=== PATIENT | male | born 1965 | race African-American/Black ===

== ENCOUNTER 2018-05-11 01:24 | Emergency (ER) | payer MEDICAID ==
[~2018-05-11] VITALS: Ht 188 cm; Wt 75.0 kg
[2018-05-11 05:30] LABS: EOSINOPHILS % 2.8 % (0.0-5.0); HEMATOCRIT. 43.7 % (42.0-52.0); HEMOGLOBIN. 14.2 g/dL (14.0-18.0); MEAN CORPUSCULAR HEMOGLOBIN 28.2 pg (28.0-32.0); MEAN CORPUSCULAR VOLUME 86.5 fL (80.0-94.0); MEAN PLATELET VOLUME 8.7 fl (7.4-10.4); MONOCYTES % 11.8 % (2.0-8.0); NEUTROPHILS % 44.4 % (40.0-76.0); PLATELET 241 x1000/uL (130-400); RED BLOOD CELL COUNT 5.05 mill/uL (4.7-6.1); RED CELL DISTRIBUTION WIDTH 14.9 % (11.6-14.6)
[2018-05-11 05:51] LABS: CHLORIDE 110 mEq/L (98-107)
[2018-05-11 06:29] VITALS: BP 106/78
== END 2018-05-11 06:43 | disposition home or self-care (01) ==
LOC: ER 01:24
DX: S96.912A Strain of unspecified muscle and tendon at ankle and foot level, left foot, initial encounter (principal); R07.89 Other chest pain; I10 Essential (primary) hypertension; I25.2 Old myocardial infarction; F17.200 Nicotine dependence, unspecified, uncomplicated; W22.8XXA Striking against or struck by other objects, initial encounter; Y93.89 Activity, other specified; Y92.89 Other specified places as the place of occurrence of the external cause; Y99.8 Other external cause status; Z98.890 Other specified postprocedural states
CPT/HCPCS: 36415; 71045; 73630; 84484; 93005; 99284